=== PATIENT | female | born 1960 | race Caucasian/White ===

== ENCOUNTER 2018-11-10 19:38 | Emergency (ER) | payer BC, SELFPAY ==
[~2018-11-10 19:38] MED LIST: Amiodarone 150 MG/3 ML VIAL ONE; Atropine Sulfate 1 mg/10 ml Syringe ONE; EPINEPHrine 1 MG/10 ML Abboject SYRINGE ONE; Sodium Bicarb 50 MEQ/50 ML Abboject 8.4% SYRINGE ONE
== END 2018-11-10 19:51 | disposition expired ==
LOC: EDBD 19:38 → ERS 19:38
DX: I46.9 Cardiac arrest, cause unspecified (principal); E11.9 Type 2 diabetes mellitus without complications; I25.2 Old myocardial infarction; I50.9 Heart failure, unspecified; F17.200 Nicotine dependence, unspecified, uncomplicated
CPT/HCPCS: 31500; 36556; 43753; 92950; 94760; 96374; 96375; J0171; J0282; J0461